=== PATIENT | female | born 1990 | race Caucasian/White ===

== ENCOUNTER 2023-08-20 15:30 | Emergency (ER) | payer MEDICARE, OTHER, SELFPAY ==
[2023-08-20 15:33] VITALS: BP 131/74
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
[2023-08-20 18:30] VITALS: BP 128/76
== END 2023-08-20 18:55 | disposition home or self-care (01) ==
LOC: EMR 15:30
PROVIDERS: EMERGENCY PHYSICIAN Emergency Medicine
DX: F84.0 Autistic disorder (principal); Z13.39 Encounter for screening examination for other mental health and behavioral disorders
CPT/HCPCS: 99283

== ENCOUNTER 2023-08-24 15:08 | Emergency (ER) | payer MEDICARE, OTHER, SELFPAY ==
[2023-08-24 15:24] VITALS: BP 121/67
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
[2023-08-24 15:33] VITALS: BMI 23.6
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
[2023-08-24 16:06] LABS: % Basophils 0.9 % (0-2); % Eosinophils 1.9 % (0-6); % Lymphocytes 42.8 % (20.5-51.1); % Monocytes 9.6 % (1.7-9.3); % Neutrophils 44.8 % (42.2-75.2); Absolute Basophils 0.1 10^3/uL (0-0.2); Absolute Eosinophils 0.1 10^3/uL (0-0.7); Absolute Lymphocytes 2.4 10^3/uL (1.2-3.4); Absolute Monocytes 0.6 10^3/uL (0.1-0.6); Absolute Neutrophils 2.6 10^3/uL (1.4-6.5); Hematocrit 33.7 % (37.0-47.0); Hemoglobin 10.5 g/dL (12.0-16.0); Mean Corp Hgb Conc. 31.2 g/dL (33.0-37.0); Mean Corpuscular Hgb 21.7 pg (27.0-31.0); Mean Corpuscular Volume 69.8 fL (81.0-99.0); Mean Platelet Volume 8.8 fL (7.4-10.4); Nucleated Red Blood Cells % 0 %; Platelet Count 332 10^3/uL (130-400); Red Blood Cell Count 4.83 10^6/uL (4.20-5.40); Red Cell Dist. Width 16.9 % (11.5-14.5); White Blood Cell Count 5.7 10^3/uL (4.8-10.8)
[2023-08-24 16:27] LABS: ALT (SGPT) 17 U/L (0-35); AST (SGOT) 17 U/L (14-36); Acetaminophen < 10 ug/ml (10-30); Albumin 4.2 g/dl (3.5-5.0); Alkaline Phosphatase 72 U/L (38-126); Blood Urea Nitrogen 9 mg/dl (7-17); Calcium 8.8 mg/dl (8.4-10.2); Carbon Dioxide 28 mmol/L (22-30); Chloride 101 mmol/L (98-107); Estimated Creatinine Clearance 104 ml/min; Glucose 90 mg/dl (70-99); Potassium 4.2 mmol/L (3.5-5.1); Salicylate < 1.0 mg/dl (2.0-20.0); Sodium 133 mmol/L (135-145); Total Bilirubin 0.3 mg/dl (0.2-1.3); Total Protein 6.7 g/dl (6.3-8.2); eGFR > 60.00
[2023-08-24 16:30] LABS: Alcohol None Detected; COVID-19 Antigen Negative (Negative)
[2023-08-24 17:34] LABS: HCG, Urine Qualitative Screen Negative
[2023-08-24 17:44] LABS: Amphetamines Negative (Negative); Barbiturates Positive (Negative); Benzodiazepines Negative (Negative); Buprenorphine Negative (Negative); Cocaine Negative (Negative); Marijuana Negative (Negative); Methadone Negative (Negative); Methamphetamines Negative (Negative); Opiates Negative (Negative); Phencyclidine Negative (Negative); Tricyclic Antidepressants Negative (Negative)
[2023-08-24] MEDS: LATUDA 60 MG PO (19:14)
[2023-08-24] MEDS: TRILEPTAL 300 MG PO (19:15)
[2023-08-24] MEDS: MYSOLINE 50 MG PO (19:16)
[2023-08-24] MEDS: ATIVAN 0.5 MG PO (21:17)
[2023-08-24] MEDS: MELATONIN 3 MG PO (21:18)
[2023-08-25 08:52] VITALS: BP 136/71
[2023-08-25] MEDS: ZOLOFT 50 MG PO (08:56)
[2023-08-25] MEDS: ATIVAN 0.5 MG PO (08:56)
[2023-08-25] MEDS: FOLVITE 1 MG PO (08:56)
--- NOTE | 2023-08-25 09:05 | EDRN ---
the pt was compliant with allowing this RN to obtain vital signs, VS WNL, the pt is calm, and cooperative, the pt was also compliant with taking AM medications, will continue to monitor the pt closely
[2023-08-25] MEDS: TRILEPTAL 300 MG PO (09:42)
[2023-08-25] MEDS: MYSOLINE 50 MG PO (09:42)
== END 2023-08-25 12:34 ==
LOC: EMR 15:08
PROVIDERS: CONSULT PHYSICIAN Psychiatry & Neurology Psychiatry; EMERGENCY PHYSICIAN Emergency Medicine
DX: F91.9 Conduct disorder, unspecified (principal); F42.9 Obsessive-compulsive disorder, unspecified; F25.9 Schizoaffective disorder, unspecified; F84.0 Autistic disorder
CPT/HCPCS: 99285; 80053; 80143; 80179; 80306; 81025; 82077; 85025; 87811